=== PATIENT | female | born 1990 | race Caucasian/White ===

== ENCOUNTER 2020-08-17 01:48 | Inpatient (IN) ==
[2020-08-17] MEDS ORDERED: Lidocaine 1% 20 ML MDV ONE (02:05)
[2020-08-17] MEDS ORDERED: Lidocaine 1% 20 ML MDV INFILT PRN (02:15)
[2020-08-17] MEDS ORDERED: Metoclopramide 10 MG/2 ML VIAL IVP PRN (02:15)
[2020-08-17] MEDS ORDERED: Ondansetron 4 MG/2 ML VIAL IVP PRN ×2 (02:15→04:28)
[2020-08-17] MEDS ORDERED: Famotidine 20 MG/2 ML VIAL IVP PRN (02:15)
[2020-08-17] MEDS ORDERED: *HR* FentaNYL (PF) 100 MCG/2 ML VIAL IVP ONE (02:22)
[2020-08-17] MEDS ORDERED: *HR* FentaNYL (PF) 100 MCG/2 ML VIAL ONE (02:25)
[2020-08-17 02:32] LABS: Basophils # 0.1 K/mcL (0.0-0.2); Basophils % 0.6 %; Eosinophils % 0.3 %; Hematocrit 44.6 % (35.3-44.9); Hemoglobin 14.3 g/dL (11.5-15.4); Immature Granulocytes % 0.3 % (0-4); Immature Platelets 29.2 % (1.1-6.1); Lymphocytes % 29.3 %; Mean Corpuscular HGB Conc 32.1 g/dL (31.6-35.5); Mean Corpuscular Hemoglobin 30.5 pg (28.0-33.3); Mean Corpuscular Volume 95.1 fL (83.0-100.0); Mean Platelet Volume 14.2 fL (9.4-12.4); Monocytes # 0.7 K/mcL (0.0-1.3); Monocytes % 7.5 %; Neutrophils # 5.6 K/mcL (1.6-8.9); Red Blood Count 4.69 M/mcL (3.82-4.97); Red Cell Distribution Width 13.7 % (11.5-14.5)
[2020-08-17] MEDS ORDERED: Methylergonovine 0.2 MG/ML AMPUL IM ONE ×2 (02:37→11:52)
[2020-08-17 03:02] LABS: Lymphocytes # 2.6 K/mcL (0.6-4.6); Platelet Count 82 K/mcL (140-400)
[2020-08-17] MEDS ORDERED: Oxytocin 20 units/ LR 1000 mL 20 UNIT/1,000 ML BAG IVC ONE ×2 (03:46→04:28)
[2020-08-17] MEDS ORDERED: Oxytocin 20 units/ LR 1000 mL 20 UNIT/1,000 ML BAG IVC SCH (04:28)
[2020-08-17] MEDS ORDERED: Measles/Mumps/Rubella Vacc 0.5 ML VIAL SQ PRN (04:28)
[2020-08-17] MEDS ORDERED: *HR* Oxytocin 10 UNIT/ML VIAL IM ONE (04:28)
[2020-08-17] MEDS ORDERED: Benzocaine/Menthol 56 GM AEROSOL SPRAY TP PRN (04:28)
[2020-08-17] MEDS ORDERED: Acetaminophen 325 MG TABLET PO PRN (04:28)
[2020-08-17] MEDS: Ibuprofen 600 MG TABLET PO PRN ×2 (06:01→16:07)
[2020-08-17] MEDS ORDERED: Prenatal Vit/FA 1 EACH TABLET PO SCH (09:00)
[2020-08-18] MEDS: Ibuprofen 600 MG TABLET PO PRN (03:02)
[2020-08-18 07:45] VITALS: BP 128/84
== END 2020-08-18 09:47 | disposition home or self-care (01) | DRG 548 ==
LOC: 1NENULAB 01:55 → 1NENUOBS 04:27
PROVIDERS: ADMIT Advanced Practice Midwife; ATTEND Advanced Practice Midwife